=== PATIENT | male | born 1940 | race Caucasian/White ===

== ENCOUNTER 2017-11-02 11:20 | Inpatient (IN) | payer MEDICARE, BC ==
[~2017-11-02] VITALS: Ht 174 cm; Wt 83.0 kg
[~2017-11-02 11:20] MED LIST: ASPI81TA50 PO; ATOR20TA58 PO; CHOL2000 PO; CYAN10005 PO; DONE10TA7 PO; HYDR50TA6 PO; MAGN400T22 PO; POTA10TA12 PO; POTA10TA5 PO; SERT100T PO
[2017-11-02 16:33] VITALS: BP 160/94
[2017-11-02] MEDS ORDERED: SIME62.5 PO (17:29)
[2017-11-02] MEDS ORDERED: CARB1TAB2 PO (17:29)
[2017-11-02] MEDS ORDERED: ACET325T9 PO (17:29)
[2017-11-02] MEDS ORDERED: LEVO50TA PO (17:29)
[2017-11-02] MEDS ORDERED: POTA10CA PO (17:29)
[2017-11-02] MEDS ORDERED: LISI10TA2 PO (17:29)
[2017-11-02] MEDS ORDERED: SIMETHICONE 80 MG TAB.CHEW PO PRN (17:45)
[2017-11-02] MEDS: ACETAMINOPHEN 500 MG TABLET PO SCH ×2 (18:00→23:07)
[2017-11-02] MEDS: ATORVASTATIN CALCIUM 20 MG TABLET PO SCH (20:06)
[2017-11-02] MEDS: CARBIDOPA/LEVODOPA 25/100MG TABLET PO SCH (20:06)
[2017-11-03 05:35] VITALS: BP 132/77
[2017-11-03] MEDS: ACETAMINOPHEN 500 MG TABLET PO SCH ×4 (06:04→23:28)
[2017-11-03] MEDS: LEVOTHYROXINE 50 MCG TABLET PO SCH (06:04)
[2017-11-03] MEDS: SERTRALINE 100 MG TABLET. PO SCH (08:48)
[2017-11-03] MEDS: DONEPEZIL HCL 10 MG TABLET PO SCH (08:48)
[2017-11-03] MEDS: POTASSIUM CHLORIDE 20 MEQ TABLET.ER. PO SCH (08:48)
[2017-11-03] MEDS: ASPIRIN ENTERIC COATED 81 MG TABLET.DR. PO SCH (08:48)
[2017-11-03] MEDS: CARBIDOPA/LEVODOPA 25/100MG TABLET PO SCH ×3 (08:48→19:40)
[2017-11-03] MEDS: LISINOPRIL 10 MG TABLET PO SCH (08:49)
--- NOTE | 2017-11-03 11:14 | PDOC1 ---
History of Present Illness Reason for Visit: Rehab History of Present Illness Pt admitted to [facility] after a fall, sent to [facility] for swing bed rehab. Working w/ PT already today. Pt is well-known to me, hx of multi-system atrophy and dementia, hx of prostate cancer. REcently moved in to [place] in [place]. 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 See HPI for pertinent positives and negative responses, other celaya all other systems are negative, non pertinent or non contributory Allergies: Coded Allergies: No Known Drug Allergies (Unverified , 09/01/15) Medications Current Medications Acetaminophen (Tylenol) 500 mg Q6HRS PO Last administered on 11/03/17 06:04; Start 11/02/17 at 18:00 Aspirin (Aspirin Enteric Coated) 81 mg DAILY PO Last administered on 08:48; Start 11/03/17 at 09:00 Atorvastatin Calcium (Lipitor) 40 mg QHS PO Last administered on 11/02/17 20: 06; Start 11/02/17 at 21:00 Carbidopa/Levodopa (Sinemet 25/100) 1 tab TID PO Last administered on 08:48; Start 11/02/17 at 21:00 Donepezil HCl (Aricept) 20 mg DAILY PO Last administered on 11/03/17 08:48; Start 11/03/17 at 09:00 Levothyroxine Sodium (Synthroid) 50 mcg DAILY07 PO Last administered on 06:04; Start 11/03/17 at 07:00 Lisinopril (Prinivil) 10 mg DAILY PO Last administered on 11/03/17 08:49; Start 11/03/17 at 09:00 Sertraline HCl (Zoloft) 100 mg DAILY PO Last administered on 11/03/17 08:48; Start 11/03/17 at 09:00 Potassium Chloride (Klor-Con) 20 meq DAILYWBKFT PO Last administered on t 08:48; Start 11/03/17 at 08:00 Simethicone (Gas-X) 80 mg PRN BID PRN PO GAS / BLOATING; Start 11/02/17 at 17: 45 Active Scripts Active Klor-Con M10 (Potassium Chloride) 10 Meq Tablet.er 40 Meq PO BID Mag-Oxide (Magnesium Oxide) 400 Mg Tablet 1 Tab PO DAILY Reported Gas-X (Simethicone) 62.5 Mg Strip 80 Mg PO PRN BID PRN Potassium Chloride 10 Meq Capsule.er 20 Meq PO DAILYWBKFT Lisinopril 10 Mg Tablet 1 Tab PO DAILY Synthroid (Levothyroxine Sodium) 50 Mcg Tablet 1 Tab PO DAILY Sinemet 25-100 Mg Tablet (Carbidopa/Levodopa) 1 Each Tablet 1 Tab PO TID Tylenol (Acetaminophen) 325 Mg Tablet 500 Mg PO Q6HRS Hydrochlorothiazide Tablet (Hydrochlorothiazide) 50 Mg Tablet 25 Mg PO DAILY for hgih blood pressure last dose: 09/02 next dose: 09/03 AM Aspir-Low (Aspirin) 81 Mg Tablet.dr 81 Mg PO DAILY for heart health, blodo thinner prophlactic last dose: 09/02 AM next dose: 09/03 AM Atorvastatin Calcium 20 Mg Tablet 40 Mg PO QHS for high cholesterol last dose: 09/01 PM next dose: 09/02 PM Donepezil Hcl 10 Mg Tablet 20 Mg PO DAILY for dementia last dose: 09/02 AM next dose: 09/03 AM Zoloft (Sertraline Hcl) 100 Mg Tablet 100 Mg PO DAILY for depression last dose: 09/02 AM next dose: 09/03 AM Exam Vital Signs Vital Signs Date Time Temp Pulse Resp B/P (MAP) Pulse Ox O2 Delivery O2 Flow Rate FiO2 11/03/17 08:49 52 132/77 11/03/17 08:00 Room Air 11/03/17 05:35 98.3 16 96 General Appearance: Alert, Cooperative, No acute distress HEENT: PERRLA, EOMI, Mucous membr. moist/pink Respiratory: Clear to auscultation, Normal air movement Heart: Regular rate, Normal S1, Normal S2, No murmurs Abdominal: Soft, No tenderness Extremities: Normal pulses Skin: No rashes Neuro: Cranial nerves 3-12 NL, Other (Gait steady w/ walker and assistance) Psych/Mental Status: Other (AFfect flat, at pt's baseline) Assessment/Plan Assessment/Plan Generalized debility: Swing bed status for rehab. Dementia: Cont home meds Parkinsonism: Cont Sinemet Hypothyroidism: Cont Synthroid Depression, recurrent, moderate: Continue sertraline. COURSE Allergies Coded Allergies Type Severity Reaction Last Updated Verified No Known Drug Allergies 09/01/15 No Current Medications Medications (Trade) Dose Ordered Sig/Marisela Route PRN Reason Start Time Stop Time Status Last Admin Dose Admin Acetaminophen (Tylenol) 500 mg Q6HRS PO 11/02/17 18:00 11/03/17 06:04 Aspirin (Aspirin Enteric Coated) 81 mg DAILY PO 11/03/17 09:00 11/03/17 08:48 Atorvastatin Calcium (Lipitor) 40 mg QHS PO 11/02/17 21:00 11/02/17 20:06 Carbidopa/Levodopa (Sinemet 25/100) 1 tab TID PO 11/02/17 21:00 11/03/17 08:48 Donepezil HCl (Aricept) 20 mg DAILY PO 11/03/17 09:00 11/03/17 08:48 Levothyroxine Sodium (Synthroid) 50 mcg DAILY07 PO 11/03/17 07:00 11/03/17 06:04 Lisinopril (Prinivil) 10 mg DAILY PO 11/03/17 09:00 11/03/17 08:49 Sertraline HCl (Zoloft) 100 mg DAILY PO 11/03/17 09:00 11/03/17 08:48 Potassium Chloride (Klor-Con) 20 meq DAILYWBKFT PO 11/03/17 08:00 11/03/17 08:48 Simethicone (Gas-X) 80 mg PRN BID PRN PO GAS / BLOATING 11/02/17 17:45 I & O 11/03/17 00:00 Intake Total 0 ml Balance 0 ml Vital Signs Date Time Temp Pulse Resp B/P (MAP) Pulse Ox O2 Delivery O2 Flow Rate FiO2 11/03/17 08:49 52 132/77 11/03/17 08:00 Room Air 11/03/17 05:35 98.3 16 96 STAN KAUFMAN MD Nov 03, 2017 11:14
[2017-11-03 15:25] VITALS: BP 106/67
[2017-11-03] MEDS: ATORVASTATIN CALCIUM 20 MG TABLET PO SCH (19:40)
[2017-11-03 19:59] VITALS: BP 121/80
[2017-11-04] MEDS: LEVOTHYROXINE 50 MCG TABLET PO SCH (05:05)
[2017-11-04] MEDS: ACETAMINOPHEN 500 MG TABLET PO SCH ×4 (05:05→23:41)
[2017-11-04 05:40] VITALS: BP 131/86
[2017-11-04] MEDS: ASPIRIN ENTERIC COATED 81 MG TABLET.DR. PO SCH (08:06)
[2017-11-04] MEDS: CARBIDOPA/LEVODOPA 25/100MG TABLET PO SCH ×3 (08:06→20:19)
[2017-11-04] MEDS: POTASSIUM CHLORIDE 20 MEQ TABLET.ER. PO SCH (08:07)
[2017-11-04] MEDS: LISINOPRIL 10 MG TABLET PO SCH (08:07)
[2017-11-04] MEDS: DONEPEZIL HCL 10 MG TABLET PO SCH (08:07)
[2017-11-04] MEDS: SERTRALINE 100 MG TABLET. PO SCH (08:07)
[2017-11-04 15:32] VITALS: BP 129/74
[2017-11-04 19:49] VITALS: BP 157/84
[2017-11-04] MEDS: ATORVASTATIN CALCIUM 20 MG TABLET PO SCH (20:19)
[2017-11-05] MEDS: LEVOTHYROXINE 50 MCG TABLET PO SCH (05:22)
[2017-11-05] MEDS: ACETAMINOPHEN 500 MG TABLET PO SCH ×3 (05:22→18:37)
[2017-11-05 05:30] VITALS: BP 126/88
[2017-11-05] MEDS: CARBIDOPA/LEVODOPA 25/100MG TABLET PO SCH ×3 (08:34→21:38)
[2017-11-05] MEDS: DONEPEZIL HCL 10 MG TABLET PO SCH (08:34)
[2017-11-05] MEDS: ASPIRIN ENTERIC COATED 81 MG TABLET.DR. PO SCH (08:34)
[2017-11-05] MEDS: SERTRALINE 100 MG TABLET. PO SCH (08:34)
[2017-11-05] MEDS: POTASSIUM CHLORIDE 20 MEQ TABLET.ER. PO SCH (08:34)
[2017-11-05] MEDS: LISINOPRIL 10 MG TABLET PO SCH (08:36)
[2017-11-05] MEDS: ATORVASTATIN CALCIUM 20 MG TABLET PO SCH (21:38)
[2017-11-05] MEDS: DOCUSATE SODIUM 100 MG CAPSULE PO SCH (21:38)
[2017-11-06] MEDS: ACETAMINOPHEN 500 MG TABLET PO SCH ×4 (06:53→18:48)
[2017-11-06] MEDS: LEVOTHYROXINE 50 MCG TABLET PO SCH (06:53)
[2017-11-06 07:19] LABS: HEMATOCRIT 41.8 % (39.0-53.0); HEMOGLOBIN 14.2 g/dL (13.0-17.5); RED BLOOD COUNT 4.36 x10^6/uL (4.30-5.70); RED CELL DISTRIBUTION WIDTH 14.6 % (11.5-14.5); WHITE BLOOD COUNT 7.3 x10^3/uL (4.0-11.0)
[2017-11-06 07:30] LABS: CALCIUM 9.3 mg/dL (8.5-10.1); CREATININE 0.9 mg/dL (0.7-1.3); GFR 81.4; POTASSIUM 3.9 mmol/L (3.5-5.1)
[2017-11-06 08:00] VITALS: BP 147/84
[2017-11-06] MEDS: ASPIRIN ENTERIC COATED 81 MG TABLET.DR. PO SCH (08:16)
[2017-11-06] MEDS: LISINOPRIL 10 MG TABLET PO SCH (08:16)
[2017-11-06] MEDS: CARBIDOPA/LEVODOPA 25/100MG TABLET PO SCH ×3 (08:16→20:35)
[2017-11-06] MEDS: DOCUSATE SODIUM 100 MG CAPSULE PO SCH ×2 (08:17→20:35)
[2017-11-06] MEDS: DONEPEZIL HCL 10 MG TABLET PO SCH (08:17)
[2017-11-06] MEDS: SERTRALINE 100 MG TABLET. PO SCH (08:17)
[2017-11-06] MEDS: POTASSIUM CHLORIDE 20 MEQ TABLET.ER. PO SCH (08:17)
[2017-11-06] MEDS: POLYETHYLENE GLYCOL 3350 17 GM PACKET. PO SCH (09:57)
[2017-11-06] MEDS ORDERED: LISI1TAB3 PO (19:27)
[2017-11-06] MEDS: ATORVASTATIN CALCIUM 20 MG TABLET PO SCH (20:35)
[2017-11-06 20:36] VITALS: BP 170/85
[2017-11-06 23:06] VITALS: BP 155/80
[2017-11-07] MEDS ORDERED: ACET500T68 PO (00:39)
[2017-11-07] MEDS ORDERED: MIRT15TA PO (00:47)
[2017-11-07] MEDS ORDERED: BUPR150T15 PO (00:47)
[2017-11-07] MEDS ORDERED: MELO7.5T5 PO (00:47)
[2017-11-07 05:50] VITALS: BP 156/88
[2017-11-07] MEDS: ACETAMINOPHEN 500 MG TABLET PO SCH ×4 (06:14→17:02)
[2017-11-07] MEDS: LEVOTHYROXINE 50 MCG TABLET PO SCH (07:45)
[2017-11-07] MEDS: ASPIRIN ENTERIC COATED 81 MG TABLET.DR. PO SCH (07:45)
[2017-11-07] MEDS: DONEPEZIL HCL 10 MG TABLET PO SCH (07:46)
[2017-11-07] MEDS: CARBIDOPA/LEVODOPA 25/100MG TABLET PO SCH ×3 (07:46→20:50)
[2017-11-07] MEDS: POTASSIUM CHLORIDE 20 MEQ TABLET.ER. PO SCH (07:46)
[2017-11-07] MEDS: SERTRALINE 100 MG TABLET. PO SCH (07:46)
[2017-11-07] MEDS: DOCUSATE SODIUM 100 MG CAPSULE PO SCH ×2 (07:47→20:50)
[2017-11-07] MEDS: POLYETHYLENE GLYCOL 3350 17 GM PACKET. PO SCH (07:47)
[2017-11-07] MEDS: LISINOPRIL 10 MG TABLET PO SCH (07:47)
[2017-11-07 19:01] VITALS: BP 143/83
[2017-11-07] MEDS: MIRTAZAPINE 7.5 MG TABLET. PO SCH (20:50)
[2017-11-07] MEDS: ATORVASTATIN CALCIUM 20 MG TABLET PO SCH (20:50)
[2017-11-08] MEDS: ACETAMINOPHEN 500 MG TABLET PO SCH ×5 (05:34→23:08)
[2017-11-08] MEDS: LEVOTHYROXINE 50 MCG TABLET PO SCH (05:35)
[2017-11-08 05:53] VITALS: BP 159/92
[2017-11-08] MEDS: POLYETHYLENE GLYCOL 3350 17 GM PACKET. PO SCH (09:00)
[2017-11-08 09:35] VITALS: BP 143/86
[2017-11-08] MEDS: DONEPEZIL HCL 10 MG TABLET PO SCH (09:43)
[2017-11-08] MEDS: POTASSIUM CHLORIDE 20 MEQ TABLET.ER. PO SCH (09:43)
[2017-11-08] MEDS: CARBIDOPA/LEVODOPA 25/100MG TABLET PO SCH ×3 (09:44→19:51)
[2017-11-08] MEDS: ASPIRIN ENTERIC COATED 81 MG TABLET.DR. PO SCH (09:44)
[2017-11-08] MEDS: LISINOPRIL 10 MG TABLET PO SCH (09:44)
[2017-11-08] MEDS: DOCUSATE SODIUM 100 MG CAPSULE PO SCH ×2 (09:45→19:52)
[2017-11-08] MEDS: buPROPion XL 150 MG TAB.ER.24H PO SCH (13:38)
[2017-11-08] MEDS: hydroCHLOROthiazide 12.5 MG CAPSULE PO SCH (13:39)
[2017-11-08] MEDS: SERTRALINE 100 MG TABLET. PO SCH (13:39)
[2017-11-08] MEDS: MELOXICAM 7.5 MG TABLET PO SCH (13:39)
[2017-11-08 18:50] VITALS: BP 155/80
[2017-11-08] MEDS: MIRTAZAPINE 7.5 MG TABLET. PO SCH (19:51)
[2017-11-08] MEDS: ATORVASTATIN CALCIUM 20 MG TABLET PO SCH (19:51)
[2017-11-09] MEDS: ACETAMINOPHEN 500 MG TABLET PO SCH (05:29)
[2017-11-09] MEDS: LEVOTHYROXINE 50 MCG TABLET PO SCH (05:29)
[2017-11-09 05:45] VITALS: BP 145/87
[2017-11-09] MEDS: buPROPion XL 150 MG TAB.ER.24H PO SCH (08:52)
[2017-11-09] MEDS: DONEPEZIL HCL 10 MG TABLET PO SCH (08:52)
[2017-11-09] MEDS: POLYETHYLENE GLYCOL 3350 17 GM PACKET. PO SCH (08:52)
[2017-11-09] MEDS: hydroCHLOROthiazide 12.5 MG CAPSULE PO SCH (08:52)
[2017-11-09] MEDS: ASPIRIN ENTERIC COATED 81 MG TABLET.DR. PO SCH (08:52)
[2017-11-09] MEDS: MELOXICAM 7.5 MG TABLET PO SCH (08:53)
[2017-11-09] MEDS: POTASSIUM CHLORIDE 20 MEQ TABLET.ER. PO SCH (08:53)
[2017-11-09] MEDS: SERTRALINE 100 MG TABLET. PO SCH (08:53)
[2017-11-09] MEDS: DOCUSATE SODIUM 100 MG CAPSULE PO SCH ×2 (08:53→19:56)
[2017-11-09] MEDS: LISINOPRIL 10 MG TABLET PO SCH (08:53)
[2017-11-09] MEDS: CARBIDOPA/LEVODOPA 25/100MG TABLET PO SCH ×3 (08:53→19:57)
[2017-11-09 18:24] VITALS: BP 164/93
[2017-11-09] MEDS: MIRTAZAPINE 7.5 MG TABLET. PO SCH (19:57)
[2017-11-09] MEDS: ATORVASTATIN CALCIUM 20 MG TABLET PO SCH (19:57)
[2017-11-10 05:42] VITALS: BP 115/79
[2017-11-10] MEDS: LEVOTHYROXINE 50 MCG TABLET PO SCH (06:00)
[2017-11-10] MEDS: DOCUSATE SODIUM 100 MG CAPSULE PO SCH ×2 (09:00→20:14)
[2017-11-10] MEDS: POLYETHYLENE GLYCOL 3350 17 GM PACKET. PO SCH (09:00)
[2017-11-10] MEDS: DONEPEZIL HCL 10 MG TABLET PO SCH (09:37)
[2017-11-10] MEDS: SERTRALINE 100 MG TABLET. PO SCH (09:37)
[2017-11-10] MEDS: LISINOPRIL 10 MG TABLET PO SCH (09:38)
[2017-11-10] MEDS: CARBIDOPA/LEVODOPA 25/100MG TABLET PO SCH ×3 (09:38→20:12)
[2017-11-10] MEDS: buPROPion XL 150 MG TAB.ER.24H PO SCH (09:38)
[2017-11-10] MEDS: ASPIRIN ENTERIC COATED 81 MG TABLET.DR. PO SCH (09:39)
[2017-11-10] MEDS: POTASSIUM CHLORIDE 20 MEQ TABLET.ER. PO SCH (09:39)
[2017-11-10] MEDS: hydroCHLOROthiazide 12.5 MG CAPSULE PO SCH (09:39)
[2017-11-10] MEDS: MELOXICAM 7.5 MG TABLET PO SCH (09:39)
[2017-11-10 18:11] VITALS: BP 117/76
[2017-11-10] MEDS: MIRTAZAPINE 7.5 MG TABLET. PO SCH (20:12)
[2017-11-10] MEDS: ATORVASTATIN CALCIUM 20 MG TABLET PO SCH (20:12)
[2017-11-10] MEDS: ACETAMINOPHEN 500 MG TABLET PO PRN (23:23)
[2017-11-11] MEDS: LEVOTHYROXINE 50 MCG TABLET PO SCH (05:19)
[2017-11-11 05:27] VITALS: BP 139/89
[2017-11-11] MEDS: POTASSIUM CHLORIDE 20 MEQ TABLET.ER. PO SCH (08:03)
[2017-11-11] MEDS: SERTRALINE 100 MG TABLET. PO SCH (08:03)
[2017-11-11] MEDS: buPROPion XL 150 MG TAB.ER.24H PO SCH (08:03)
[2017-11-11] MEDS: hydroCHLOROthiazide 12.5 MG CAPSULE PO SCH (08:03)
[2017-11-11] MEDS: ASPIRIN ENTERIC COATED 81 MG TABLET.DR. PO SCH (08:03)
[2017-11-11] MEDS: CARBIDOPA/LEVODOPA 25/100MG TABLET PO SCH ×3 (08:04→19:51)
[2017-11-11] MEDS: DONEPEZIL HCL 10 MG TABLET PO SCH (08:04)
[2017-11-11] MEDS: LISINOPRIL 10 MG TABLET PO SCH (08:04)
[2017-11-11] MEDS: MELOXICAM 7.5 MG TABLET PO SCH (08:04)
[2017-11-11] MEDS: DOCUSATE SODIUM 100 MG CAPSULE PO SCH ×2 (08:05→19:51)
[2017-11-11] MEDS: POLYETHYLENE GLYCOL 3350 17 GM PACKET. PO SCH (08:05)
[2017-11-11] MEDS: ACETAMINOPHEN 500 MG TABLET PO PRN (09:51)
[2017-11-11 18:05] VITALS: BP 132/77
[2017-11-11] MEDS: MIRTAZAPINE 7.5 MG TABLET. PO SCH (19:51)
[2017-11-11] MEDS: ATORVASTATIN CALCIUM 20 MG TABLET PO SCH (19:51)
[2017-11-12 05:38] VITALS: BP 118/68
[2017-11-12] MEDS: hydroCHLOROthiazide 12.5 MG CAPSULE PO SCH (08:28)
[2017-11-12] MEDS: MELOXICAM 7.5 MG TABLET PO SCH (08:29)
[2017-11-12] MEDS: CARBIDOPA/LEVODOPA 25/100MG TABLET PO SCH ×3 (08:30→20:48)
[2017-11-12] MEDS: SERTRALINE 100 MG TABLET. PO SCH (08:31)
[2017-11-12] MEDS: ASPIRIN ENTERIC COATED 81 MG TABLET.DR. PO SCH (08:31)
[2017-11-12] MEDS: buPROPion XL 150 MG TAB.ER.24H PO SCH (08:31)
[2017-11-12] MEDS: POTASSIUM CHLORIDE 20 MEQ TABLET.ER. PO SCH (08:31)
[2017-11-12] MEDS: DONEPEZIL HCL 10 MG TABLET PO SCH (08:31)
[2017-11-12] MEDS: DOCUSATE SODIUM 100 MG CAPSULE PO SCH ×2 (08:32→20:51)
[2017-11-12] MEDS: LISINOPRIL 10 MG TABLET PO SCH (08:32)
[2017-11-12] MEDS: POLYETHYLENE GLYCOL 3350 17 GM PACKET. PO SCH (08:33)
[2017-11-12] MEDS: LEVOTHYROXINE 50 MCG TABLET PO SCH (10:57)
[2017-11-12 14:17] VITALS: BP 111/66
[2017-11-12 18:14] VITALS: BP 125/72
[2017-11-12] MEDS: MIRTAZAPINE 7.5 MG TABLET. PO SCH (20:48)
[2017-11-12] MEDS: ATORVASTATIN CALCIUM 20 MG TABLET PO SCH (20:49)
[2017-11-13 05:32] VITALS: BP 117/67
[2017-11-13] MEDS: LEVOTHYROXINE 50 MCG TABLET PO SCH (08:09)
[2017-11-13] MEDS: buPROPion XL 150 MG TAB.ER.24H PO SCH (08:44)
[2017-11-13] MEDS: DONEPEZIL HCL 10 MG TABLET PO SCH (08:45)
[2017-11-13] MEDS: LISINOPRIL 10 MG TABLET PO SCH (08:45)
[2017-11-13] MEDS: DOCUSATE SODIUM 100 MG CAPSULE PO SCH ×2 (08:45→20:47)
[2017-11-13] MEDS: POTASSIUM CHLORIDE 20 MEQ TABLET.ER. PO SCH (08:45)
[2017-11-13] MEDS: ASPIRIN ENTERIC COATED 81 MG TABLET.DR. PO SCH (08:45)
[2017-11-13] MEDS: CARBIDOPA/LEVODOPA 25/100MG TABLET PO SCH ×3 (08:45→20:47)
[2017-11-13] MEDS: MELOXICAM 7.5 MG TABLET PO SCH (08:46)
[2017-11-13] MEDS: POLYETHYLENE GLYCOL 3350 17 GM PACKET. PO SCH (08:46)
[2017-11-13] MEDS: hydroCHLOROthiazide 12.5 MG CAPSULE PO SCH (08:46)
[2017-11-13] MEDS: SERTRALINE 100 MG TABLET. PO SCH (08:47)
--- NOTE | 2017-11-13 18:12 | PDOC ---
Exam Note: William Note: Please also refer to the separate dictated note~for this date of service dictated separately.~Patient seen individually. Discussed the patient with Nursing staff reviewed the chart.~Reviewed interim history and current functioning. Reviewed vital signs,~Labs/ Radiology~and current medications noted below. Continue current treatment with the changes noted in the dictated addendum note Assessment: Vital Signs: Vital Signs Date Time Temp Pulse Resp B/P (MAP) Pulse Ox O2 Delivery O2 Flow Rate FiO2 11/13/17 08:45 51 117/67 11/13/17 08:20 Room Air 11/13/17 05:32 97.1 16 97 I&O Intake and Output 11/13/17 07:00 Intake Total 1560 ml Balance 1560 ml Intake Oral 1560 ml # Voids 6 # Bowel Movements 2 Current Medications: Meds: Current Medications Acetaminophen (Tylenol) 500 mg Q6HRS PO Last administered on 11/09/17 05:29; Start 11/02/17 at 18:00; Stop 11/09/17 at 06:46; Status DC Aspirin (Aspirin Enteric Coated) 81 mg DAILY PO Last administered on 08:45; Start 11/03/17 at 09:00 Atorvastatin Calcium (Lipitor) 40 mg QHS PO Last administered on 11/12/17 20: 49; Start 11/02/17 at 21:00 Carbidopa/Levodopa (Sinemet 25/100) 1 tab TID PO Last administered on 13:45; Start 11/02/17 at 21:00 Donepezil HCl (Aricept) 20 mg DAILY PO Last administered on 11/13/17 08:45; Start 11/03/17 at 09:00 Levothyroxine Sodium (Synthroid) 50 mcg DAILY07 PO Last administered on 08:09; Start 11/03/17 at 07:00 Lisinopril (Prinivil) 10 mg DAILY PO Last administered on 11/13/17 08:45; Start 11/03/17 at 09:00 Sertraline HCl (Zoloft) 100 mg DAILY PO Last administered on 11/07/17 07:46; Start 11/03/17 at 09:00; Stop 11/07/17 at 17:46; Status DC Potassium Chloride (Klor-Con) 20 meq DAILYWBKFT PO Last administered on 08:45; Start 11/03/17 at 08:00 Simethicone (Gas-X) 80 mg PRN BID PRN PO GAS / BLOATING; Start 11/02/17 at 17: 45 Docusate Sodium (Colace) 100 mg BID PO Last administered on 11/13/17 08:45; Start 11/05/17 at 21:00 Polyethylene Glycol (miraLAX) 17 gm DAILY PO Last administered on 11/07/17 07 :47; Start 11/06/17 at 09:00 Sertraline HCl (Zoloft) 200 mg DAILY PO Last administered on 11/13/17 08:47; Start 11/08/17 at 09:00 Mirtazapine (Remeron) 7.5 mg QHS PO Last administered on 11/12/17 20:48; Start 11/07/17 at 21:00 Hydrochlorothiazide (Microzide) 12.5 mg DAILY PO Last administered on 08:46; Start 11/08/17 at 09:00 Meloxicam (Mobic) 7.5 mg DAILY PO Last administered on 11/13/17 08:46; Start 11/08/17 at 09:00 Bupropion HCl (Wellbutrin Xl) 150 mg DAILY PO Last administered on 11/13/17 08:44; Start 11/08/17 at 09:00 Acetaminophen (Tylenol) 500 mg Q6HRS PRN PO pain Last administered on 09:51; Start 11/09/17 at 06:45 Active Scripts Active Klor-Con M10 (Potassium Chloride) 10 Meq Tablet.er 40 Meq PO BID Mag-Oxide (Magnesium Oxide) 400 Mg Tablet 1 Tab PO DAILY Reported Mobic (Meloxicam) 7.5 Mg Tablet 7.5 Mg PO DAILY Wellbutrin Xl (Bupropion Hcl) 150 Mg Tab.er.24h 150 Mg PO DAILY Remeron (Mirtazapine) 15 Mg Tablet 7.5 Mg PO QHS Acetaminophen 500 Mg Tablet 500 Mg PO PRN Q6HRS PRN Lisinopril-Hctz 10-12.5 Mg Tab (Lisinopril/Hydrochlorothiazide) 1 Each Tablet 1 Tab PO DAILY Gas-X (Simethicone) 62.5 Mg Strip 80 Mg PO PRN BID PRN Potassium Chloride 10 Meq Capsule.er 20 Meq PO DAILYWBKFT Synthroid (Levothyroxine Sodium) 50 Mcg Tablet 1 Tab PO DAILY Sinemet 25-100 Mg Tablet (Carbidopa/Levodopa) 1 Each Tablet 1 Tab PO TID Aspir-Low (Aspirin) 81 Mg Tablet.dr 81 Mg PO DAILY for heart health, blodo thinner prophlactic last dose: 09/02 AM next dose: 09/03 AM Atorvastatin Calcium 20 Mg Tablet 40 Mg PO QHS for high cholesterol last dose: 09/01 PM next dose: 09/02 PM Donepezil Hcl 10 Mg Tablet 20 Mg PO QHS for dementia last dose: 09/02 AM next dose: 09/03 AM Zoloft (Sertraline Hcl) 100 Mg Tablet 200 Mg PO DAILY for depression last dose: 09/02 AM next dose: 09/03 AM I have reviewed the current psychotropics carefully including drug interactions. Risk benefit ratio favors no change other than as noted in my dictated progress note. Diagnosis: Problems: (1) Anxiety disorder (2) Dementia in Alzheimer's disease with delusions (3) Dementia in Alzheimer's disease with depression (4) Dementia, vascular, with delusions (5) Dementia, vascular, with depression (6) Impulse control disorder ED OROZCO MD Nov 13, 2017 18:12
[2017-11-13] MEDS: MIRTAZAPINE 7.5 MG TABLET. PO SCH (20:47)
[2017-11-13] MEDS: ATORVASTATIN CALCIUM 20 MG TABLET PO SCH (20:47)
[2017-11-14 05:50] VITALS: BP 178/98
[2017-11-14] MEDS: POLYETHYLENE GLYCOL 3350 17 GM PACKET. PO SCH (09:00)
[2017-11-14] MEDS: DOCUSATE SODIUM 100 MG CAPSULE PO SCH ×2 (09:00→21:00)
[2017-11-14] MEDS: LEVOTHYROXINE 50 MCG TABLET PO SCH (10:01)
[2017-11-14] MEDS: POTASSIUM CHLORIDE 20 MEQ TABLET.ER. PO SCH (10:01)
[2017-11-14] MEDS: CARBIDOPA/LEVODOPA 25/100MG TABLET PO SCH ×3 (10:02→21:16)
[2017-11-14] MEDS: SERTRALINE 100 MG TABLET. PO SCH (10:02)
[2017-11-14] MEDS: LISINOPRIL 10 MG TABLET PO SCH (10:02)
[2017-11-14] MEDS: buPROPion XL 150 MG TAB.ER.24H PO SCH (10:02)
[2017-11-14] MEDS: ASPIRIN ENTERIC COATED 81 MG TABLET.DR. PO SCH (10:02)
[2017-11-14] MEDS: hydroCHLOROthiazide 12.5 MG CAPSULE PO SCH (10:02)
[2017-11-14] MEDS: DONEPEZIL HCL 10 MG TABLET PO SCH (10:02)
[2017-11-14] MEDS: MELOXICAM 7.5 MG TABLET PO SCH (10:02)
[2017-11-14 17:14] VITALS: BP 116/76
--- NOTE | 2017-11-14 18:20 | PDOC ---
Exam Note: William Note: Please also refer to the separate dictated note~for this date of service dictated separately.~Patient seen individually. Discussed the patient with Nursing staff reviewed the chart.~Reviewed interim history and current functioning. Reviewed vital signs,~Labs/ Radiology~and current medications noted below. Continue current treatment with the changes noted in the dictated addendum note Assessment: Vital Signs: Vital Signs Date Time Temp Pulse Resp B/P (MAP) Pulse Ox O2 Delivery O2 Flow Rate FiO2 11/14/17 17:14 97.8 63 18 116/76 (89) 97 Room Air I&O Intake and Output 11/14/17 07:00 Intake Total 1720 ml Output Total 1 ml Balance 1719 ml Intake Oral 1720 ml Output Urine Total 1 ml # Voids 2 Current Medications: Meds: Current Medications Acetaminophen (Tylenol) 500 mg Q6HRS PO Last administered on 11/09/17 05:29; Start 11/02/17 at 18:00; Stop 11/09/17 at 06:46; Status DC Aspirin (Aspirin Enteric Coated) 81 mg DAILY PO Last administered on 10:02; Start 11/03/17 at 09:00 Atorvastatin Calcium (Lipitor) 40 mg QHS PO Last administered on 11/13/17 20: 47; Start 11/02/17 at 21:00 Carbidopa/Levodopa (Sinemet 25/100) 1 tab TID PO Last administered on 14:18; Start 11/02/17 at 21:00 Donepezil HCl (Aricept) 20 mg DAILY PO Last administered on 11/14/17 10:02; Start 11/03/17 at 09:00 Levothyroxine Sodium (Synthroid) 50 mcg DAILY07 PO Last administered on 10:01; Start 11/03/17 at 07:00 Lisinopril (Prinivil) 10 mg DAILY PO Last administered on 11/14/17 10:02; Start 11/03/17 at 09:00 Sertraline HCl (Zoloft) 100 mg DAILY PO Last administered on 11/07/17 07:46; Start 11/03/17 at 09:00; Stop 11/07/17 at 17:46; Status DC Potassium Chloride (Klor-Con) 20 meq DAILYWBKFT PO Last administered on 10:01; Start 11/03/17 at 08:00 Simethicone (Gas-X) 80 mg PRN BID PRN PO GAS / BLOATING; Start 11/02/17 at 17: 45 Docusate Sodium (Colace) 100 mg BID PO Last administered on 11/13/17 20:47; Start 11/05/17 at 21:00 Polyethylene Glycol (miraLAX) 17 gm DAILY PO Last administered on 11/07/17 07 :47; Start 11/06/17 at 09:00 Sertraline HCl (Zoloft) 200 mg DAILY PO Last administered on 11/14/17 10:02; Start 11/08/17 at 09:00 Mirtazapine (Remeron) 7.5 mg QHS PO Last administered on 11/13/17 20:47; Start 11/07/17 at 21:00 Hydrochlorothiazide (Microzide) 12.5 mg DAILY PO Last administered on 10:02; Start 11/08/17 at 09:00 Meloxicam (Mobic) 7.5 mg DAILY PO Last administered on 11/14/17 10:02; Start 11/08/17 at 09:00 Bupropion HCl (Wellbutrin Xl) 150 mg DAILY PO Last administered on 11/14/17 10:02; Start 11/08/17 at 09:00 Acetaminophen (Tylenol) 500 mg Q6HRS PRN PO pain Last administered on 09:51; Start 11/09/17 at 06:45 Buspirone HCl (Buspar) 5 mg BID92 PO ; Start 11/15/17 at 09:00 Active Scripts Active Klor-Con M10 (Potassium Chloride) 10 Meq Tablet.er 40 Meq PO BID Mag-Oxide (Magnesium Oxide) 400 Mg Tablet 1 Tab PO DAILY Reported Mobic (Meloxicam) 7.5 Mg Tablet 7.5 Mg PO DAILY Wellbutrin Xl (Bupropion Hcl) 150 Mg Tab.er.24h 150 Mg PO DAILY Remeron (Mirtazapine) 15 Mg Tablet 7.5 Mg PO QHS Acetaminophen 500 Mg Tablet 500 Mg PO PRN Q6HRS PRN Lisinopril-Hctz 10-12.5 Mg Tab (Lisinopril/Hydrochlorothiazide) 1 Each Tablet 1 Tab PO DAILY Gas-X (Simethicone) 62.5 Mg Strip 80 Mg PO PRN BID PRN Potassium Chloride 10 Meq Capsule.er 20 Meq PO DAILYWBKFT Synthroid (Levothyroxine Sodium) 50 Mcg Tablet 1 Tab PO DAILY Sinemet 25-100 Mg Tablet (Carbidopa/Levodopa) 1 Each Tablet 1 Tab PO TID Aspir-Low (Aspirin) 81 Mg Tablet.dr 81 Mg PO DAILY for heart health, blodo thinner prophlactic last dose: 1015 AM next dose: 1016 AM Atorvastatin Calcium 20 Mg Tablet 40 Mg PO QHS for high cholesterol last dose: 09/01 PM next dose: 09/02 PM Donepezil Hcl 10 Mg Tablet 20 Mg PO QHS for dementia last dose: 09/02 AM next dose: 09/03 AM Zoloft (Sertraline Hcl) 100 Mg Tablet 200 Mg PO DAILY for depression last dose: 09/02 AM next dose: 16 AM I have reviewed the current psychotropics carefully including drug interactions. Risk benefit ratio favors no change other than as noted in my dictated progress note. Diagnosis: Problems: (1) Obsessive compulsive disorder (2) Lewy body dementia with behavioral disturbance (3) Anxiety disorder ED OROZCO MD Nov 14, 2017 18:20
[2017-11-14 19:34] VITALS: BP 122/77
[2017-11-14] MEDS: MIRTAZAPINE 7.5 MG TABLET. PO SCH (21:16)
[2017-11-14] MEDS: ACETAMINOPHEN 500 MG TABLET PO PRN (21:16)
[2017-11-14] MEDS: ATORVASTATIN CALCIUM 20 MG TABLET PO SCH (21:16)
[2017-11-15] MEDS: LEVOTHYROXINE 50 MCG TABLET PO SCH (05:54)
[2017-11-15 06:14] VITALS: BP 158/82
[2017-11-15] MEDS: DOCUSATE SODIUM 100 MG CAPSULE PO SCH ×2 (08:58→20:17)
[2017-11-15] MEDS: POLYETHYLENE GLYCOL 3350 17 GM PACKET. PO SCH (08:58)
[2017-11-15] MEDS: hydroCHLOROthiazide 12.5 MG CAPSULE PO SCH (08:59)
[2017-11-15] MEDS: MELOXICAM 7.5 MG TABLET PO SCH (08:59)
[2017-11-15] MEDS: LISINOPRIL 10 MG TABLET PO SCH (09:00)
[2017-11-15] MEDS: buPROPion XL 150 MG TAB.ER.24H PO SCH (09:00)
[2017-11-15] MEDS: CARBIDOPA/LEVODOPA 25/100MG TABLET PO SCH ×3 (09:00→20:34)
[2017-11-15] MEDS: SERTRALINE 100 MG TABLET. PO SCH (09:00)
[2017-11-15] MEDS: POTASSIUM CHLORIDE 20 MEQ TABLET.ER. PO SCH (09:00)
[2017-11-15] MEDS: ASPIRIN ENTERIC COATED 81 MG TABLET.DR. PO SCH (09:00)
[2017-11-15] MEDS: DONEPEZIL HCL 10 MG TABLET PO SCH (09:00)
[2017-11-15] MEDS: busPIRone 5 MG TABLET. PO SCH ×2 (09:03→14:47)
--- NOTE | 2017-11-15 13:45 | CONS ---
DATE OF CONSULTATION: 11/13/2017 This late entry, 11/13/2017, covers elements not covered in my initial note of 11/13/2017. I met with the patient the evening of 11/13/2017 for this evaluation. Discussed with nursing staff. IDENTIFYING DATA: The patient is a 77-year-old male seen in bed 133 at [facility] for a psychiatric consult requested by Dr. Reyes on account of symptoms of depression, anxiety, obsessiveness, memory deficits. The patient has a diagnosis of multisystem atrophy, CA prostate. CHIEF COMPLAINT: "I am quite obsessive. Yes I get fixated on details and have to have things exactly straight and clean. This is a problem at home. 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 My memory is alright." HISTORY OF PRESENT ILLNESS: The patient has a history of short-term memory deficits, anxiety, mood lability, and marked obsessive thought processes. He minimizes his memory deficits nevertheless. He has also had a history of depression and has been on antidepressants for about 4 years. No clear symptoms of bipolar disorder, suicidal or homicidal ideation. He has not been driving for the past several years due to his privileges being curtailed. The patient also has a diagnosis of Lewy body dementia with history of delusions, but no recent psychotic symptoms. PAST PSYCHIATRIC HISTORY: As above. PAST MEDICAL HISTORY: Parkinson's, followed by Dr. Keith at with major neurocognitive disorder, Lewy body type, history of sleep apnea, CA prostate. DRUG ALLERGIES: Negative. CURRENT PSYCHOTROPICS: Zoloft 200 mg daily, even though the note by Dr. Reyes indicated the patient was on 100 mg daily. The patient is also on Wellbutrin XL 150 mg a day, Aricept 20 mg a day, Remeron 7.5 mg at bedtime. CODE STATUS: DNR. FAMILY HISTORY: Noncontributory. SOCIAL HISTORY: The patient lives at home with his who does the driving, grocery shopping, and other activities. No alcohol or drug abuse history. MENTAL STATUS EXAMINATION: The patient was seen individually evening of 11/13/2017. He is oriented to himself and situation, knew he was at the hospital in [facility] in [place], felt the date was 11/12/2017, able to do 5 steps on serial 7s, spelt world forward, no error, backward 1 error. Attention span is short. Short-term memory is impaired, remote is better. No active psychotic symptoms, suicidal or homicidal ideation. He is somewhat obsessive, repetitive at times, and subjectively complains of being distressed due to his obsessive thought processes and compulsions. No suicidal or homicidal ideation. LABORATORY DATA: Reviewed. Rest of the details are mentioned in my initial note. IMPRESSION: Major neurocognitive disorder, Lewy body type with depression, history of delusions, major depressive disorder, recurrent anxiety disorder, unspecified. Rest as above. PLAN: The patient is on a reasonable dosage of Zoloft and Wellbutrin is being used to augment it. Continue the two of them together with Aricept, Remeron. Add BuSpar 5 mg twice a day to augment the Zoloft for his OCD symptoms, but given his age, I would not like to increase the dosage too much at least for now. Dr. Reyes, thank you for the opportunity to participate in your patient's care. We will follow with you. MAN Isidro OROZCO MD DR: KASIA/benedicto JOB#: [id number] / [id number]
[2017-11-15 17:28] VITALS: BP 167/73
--- NOTE | 2017-11-15 18:23 | PDOC ---
Exam Note: William Note: Please also refer to the separate dictated note~for this date of service dictated separately.~Patient seen individually. Discussed the patient with Nursing staff reviewed the chart.~Reviewed interim history and current functioning. Reviewed vital signs,~Labs/ Radiology~and current medications noted below. Continue current treatment with the changes noted in the dictated addendum note Assessment: Vital Signs: Vital Signs Date Time Temp Pulse Resp B/P (MAP) Pulse Ox O2 Delivery O2 Flow Rate FiO2 11/15/17 17:28 97.8 61 20 167/73 (104) 97 Room Air I&O Intake and Output 11/15/17 07:00 Intake Total 1840 ml Output Total 11 ml Balance 1829 ml Intake Oral 1840 ml Output Urine Total 9 ml Stool Total 2 ml Current Medications: Meds: Current Medications Acetaminophen (Tylenol) 500 mg Q6HRS PO Last administered on 11/09/17 05:29; Start 11/02/17 at 18:00; Stop 11/09/17 at 06:46; Status DC Aspirin (Aspirin Enteric Coated) 81 mg DAILY PO Last administered on 09:00; Start 11/03/17 at 09:00 Atorvastatin Calcium (Lipitor) 40 mg QHS PO Last administered on 11/14/17 21: 16; Start 11/02/17 at 21:00 Carbidopa/Levodopa (Sinemet 25/100) 1 tab TID PO Last administered on 14:47; Start 11/02/17 at 21:00 Donepezil HCl (Aricept) 20 mg DAILY PO Last administered on 11/15/17 09:00; Start 11/03/17 at 09:00 Levothyroxine Sodium (Synthroid) 50 mcg DAILY07 PO Last administered on 05:54; Start 11/03/17 at 07:00 Lisinopril (Prinivil) 10 mg DAILY PO Last administered on 11/15/17 09:00; Start 11/03/17 at 09:00 Sertraline HCl (Zoloft) 100 mg DAILY PO Last administered on 11/07/17 07:46; Start 11/03/17 at 09:00; Stop 11/07/17 at 17:46; Status DC Potassium Chloride (Klor-Con) 20 meq DAILYWBKFT PO Last administered on 09:00; Start 11/03/17 at 08:00 Simethicone (Gas-X) 80 mg PRN BID PRN PO GAS / BLOATING; Start 11/02/17 at 17: 45 Docusate Sodium (Colace) 100 mg BID PO Last administered on 11/13/17 20:47; Start 11/05/17 at 21:00 Polyethylene Glycol (miraLAX) 17 gm DAILY PO Last administered on 11/07/17 07 :47; Start 11/06/17 at 09:00 Sertraline HCl (Zoloft) 200 mg DAILY PO Last administered on 11/15/17 09:00; Start 11/08/17 at 09:00 Mirtazapine (Remeron) 7.5 mg QHS PO Last administered on 11/14/17 21:16; Start 11/07/17 at 21:00 Hydrochlorothiazide (Microzide) 12.5 mg DAILY PO Last administered on 08:59; Start 11/08/17 at 09:00 Meloxicam (Mobic) 7.5 mg DAILY PO Last administered on 11/15/17 08:59; Start 11/08/17 at 09:00 Bupropion HCl (Wellbutrin Xl) 150 mg DAILY PO Last administered on 11/15/17 09:00; Start 11/08/17 at 09:00 Acetaminophen (Tylenol) 500 mg Q6HRS PRN PO pain Last administered on 21:16; Start 11/09/17 at 06:45 Buspirone HCl (Buspar) 5 mg BID92 PO Last administered on 11/15/17 14:47; Start 11/15/17 at 09:00 Active Scripts Active Klor-Con M10 (Potassium Chloride) 10 Meq Tablet.er 40 Meq PO BID Mag-Oxide (Magnesium Oxide) 400 Mg Tablet 1 Tab PO DAILY Reported Mobic (Meloxicam) 7.5 Mg Tablet 7.5 Mg PO DAILY Wellbutrin Xl (Bupropion Hcl) 150 Mg Tab.er.24h 150 Mg PO DAILY Remeron (Mirtazapine) 15 Mg Tablet 7.5 Mg PO QHS Acetaminophen 500 Mg Tablet 500 Mg PO PRN Q6HRS PRN Lisinopril-Hctz 10-12.5 Mg Tab (Lisinopril/Hydrochlorothiazide) 1 Each Tablet 1 Tab PO DAILY Gas-X (Simethicone) 62.5 Mg Strip 80 Mg PO PRN BID PRN Potassium Chloride 10 Meq Capsule.er 20 Meq PO DAILYWBKFT Synthroid (Levothyroxine Sodium) 50 Mcg Tablet 1 Tab PO DAILY Sinemet 25-100 Mg Tablet (Carbidopa/Levodopa) 1 Each Tablet 1 Tab PO TID Aspir-Low (Aspirin) 81 Mg Tablet.dr 81 Mg PO DAILY for heart health, blodo thinner prophlactic last dose: 09/02 AM next dose: 09/03 AM Atorvastatin Calcium 20 Mg Tablet 40 Mg PO QHS for high cholesterol last dose: 09/01 PM next dose: 09/02 PM Donepezil Hcl 10 Mg Tablet 20 Mg PO QHS for dementia last dose: 09/02 AM next dose: 09/03 AM Zoloft (Sertraline Hcl) 100 Mg Tablet 200 Mg PO DAILY for depression last dose: 09/02 AM next dose: 09/03 AM I have reviewed the current psychotropics carefully including drug interactions. Risk benefit ratio favors no change other than as noted in my dictated progress note. Diagnosis: Problems: (1) Obsessive compulsive disorder (2) Lewy body dementia with behavioral disturbance (3) Anxiety disorder ED OROZCO MD Nov 15, 2017 18:23
--- NOTE | 2017-11-15 20:17 | PN ---
DATE: 11/14/2017 This note covers elements not covered in my initial note of 11/14/2017. SUBJECTIVE: The patient was seen individually, reviewed the chart. Overall, the patient remains somewhat obsessive, anxious at times and short term memory is impaired consistent with his diagnosis of Lewy body dementia. He denies any overt hallucinations. Minimizes his memory problems. REVIEW OF SYSTEMS: Ambulation impaired, with a walker. No CV, , pulmonary, eye system symptoms on review. MENTAL STATUS EXAM: Oriented times himself, situation. Speech coherent, abstraction fair, computation impaired, language function intact. Mood and affect still somewhat anxious, dysphoric. LABORATORY DATA: Reviewed. IMPRESSION: Major neurocognitive disorder, Lewy body with depression; major depressive disorder; obsessive-compulsive disorder. PLAN: Continue Zoloft 200 mg a day, augment with BuSpar 5 mg twice a day for the obsessive thought processes. Rest of the psychotropics as mentioned in my initial note and will remain unchanged. MAN Isidro OROZCO MD DR: KAISA/benedicto JOB#: [id number] / [id number]
[2017-11-15] MEDS: ATORVASTATIN CALCIUM 20 MG TABLET PO SCH (20:34)
[2017-11-15] MEDS: MIRTAZAPINE 7.5 MG TABLET. PO SCH (20:34)
[2017-11-16 06:04] VITALS: BP 168/90
[2017-11-16] MEDS: LEVOTHYROXINE 50 MCG TABLET PO SCH (06:04)
[2017-11-16 08:07] VITALS: BP 173/87
[2017-11-16] MEDS: ASPIRIN ENTERIC COATED 81 MG TABLET.DR. PO SCH (09:22)
[2017-11-16] MEDS: CARBIDOPA/LEVODOPA 25/100MG TABLET PO SCH ×3 (09:23→20:10)
[2017-11-16] MEDS: buPROPion XL 150 MG TAB.ER.24H PO SCH (09:23)
[2017-11-16] MEDS: hydroCHLOROthiazide 12.5 MG CAPSULE PO SCH (09:23)
[2017-11-16] MEDS: MELOXICAM 7.5 MG TABLET PO SCH (09:23)
[2017-11-16] MEDS: POTASSIUM CHLORIDE 20 MEQ TABLET.ER. PO SCH (09:23)
[2017-11-16] MEDS: DONEPEZIL HCL 10 MG TABLET PO SCH (09:23)
[2017-11-16] MEDS: DOCUSATE SODIUM 100 MG CAPSULE PO SCH ×2 (09:24→20:08)
[2017-11-16] MEDS: LISINOPRIL 10 MG TABLET PO SCH (09:24)
[2017-11-16] MEDS: SERTRALINE 100 MG TABLET. PO SCH (09:24)
[2017-11-16] MEDS: busPIRone 5 MG TABLET. PO SCH ×2 (09:24→13:56)
[2017-11-16] MEDS: POLYETHYLENE GLYCOL 3350 17 GM PACKET. PO SCH (09:24)
--- NOTE | 2017-11-16 18:13 | PDOC ---
Exam Note: William Note: Please also refer to the separate dictated note~for this date of service dictated separately.~Patient seen individually. Discussed the patient with Nursing staff reviewed the chart.~Reviewed interim history and current functioning. Reviewed vital signs,~Labs/ Radiology~and current medications noted below. Continue current treatment with the changes noted in the dictated addendum note Assessment: Vital Signs: Vital Signs Date Time Temp Pulse Resp B/P (MAP) Pulse Ox O2 Delivery O2 Flow Rate FiO2 11/16/17 09:24 62 173/87 11/16/17 08:24 Room Air 11/16/17 08:07 97.6 18 96 I&O Intake and Output 11/16/17 07:00 Intake Total 600 ml Output Total 1 ml Balance 599 ml Intake Oral 600 ml Output Urine Total 1 ml Current Medications: Meds: Current Medications Acetaminophen (Tylenol) 500 mg Q6HRS PO Last administered on 11/09/17 05:29; Start 11/02/17 at 18:00; Stop 11/09/17 at 06:46; Status DC Aspirin (Aspirin Enteric Coated) 81 mg DAILY PO Last administered on 09:22; Start 11/03/17 at 09:00 Atorvastatin Calcium (Lipitor) 40 mg QHS PO Last administered on 11/15/17 20: 34; Start 11/02/17 at 21:00 Carbidopa/Levodopa (Sinemet 25/100) 1 tab TID PO Last administered on 13:56; Start 11/02/17 at 21:00 Donepezil HCl (Aricept) 20 mg DAILY PO Last administered on 11/16/17 09:23; Start 11/03/17 at 09:00 Levothyroxine Sodium (Synthroid) 50 mcg DAILY07 PO Last administered on 06:04; Start 11/03/17 at 07:00 Lisinopril (Prinivil) 10 mg DAILY PO Last administered on 11/16/17 09:24; Start 11/03/17 at 09:00 Sertraline HCl (Zoloft) 100 mg DAILY PO Last administered on 11/07/17 07:46; Start 11/03/17 at 09:00; Stop 11/07/17 at 17:46; Status DC Potassium Chloride (Klor-Con) 20 meq DAILYWBKFT PO Last administered on 09:23; Start 11/03/17 at 08:00 Simethicone (Gas-X) 80 mg PRN BID PRN PO GAS / BLOATING; Start 11/02/17 at 17: 45 Docusate Sodium (Colace) 100 mg BID PO Last administered on 11/13/17 20:47; Start 11/05/17 at 21:00 Polyethylene Glycol (miraLAX) 17 gm DAILY PO Last administered on 11/07/17 07 :47; Start 11/06/17 at 09:00 Sertraline HCl (Zoloft) 200 mg DAILY PO Last administered on 11/16/17 09:24; Start 11/08/17 at 09:00 Mirtazapine (Remeron) 7.5 mg QHS PO Last administered on 11/15/17 20:34; Start 11/07/17 at 21:00 Hydrochlorothiazide (Microzide) 12.5 mg DAILY PO Last administered on 09:23; Start 11/08/17 at 09:00 Meloxicam (Mobic) 7.5 mg DAILY PO Last administered on 11/16/17 09:23; Start 11/08/17 at 09:00 Bupropion HCl (Wellbutrin Xl) 150 mg DAILY PO Last administered on 11/16/17 09:23; Start 11/08/17 at 09:00 Acetaminophen (Tylenol) 500 mg Q6HRS PRN PO pain Last administered on 21:16; Start 11/09/17 at 06:45 Buspirone HCl (Buspar) 5 mg BID92 PO Last administered on 11/16/17 13:56; Start 11/15/17 at 09:00 Active Scripts Active Klor-Con M10 (Potassium Chloride) 10 Meq Tablet.er 40 Meq PO BID Mag-Oxide (Magnesium Oxide) 400 Mg Tablet 1 Tab PO DAILY Reported Mobic (Meloxicam) 7.5 Mg Tablet 7.5 Mg PO DAILY Wellbutrin Xl (Bupropion Hcl) 150 Mg Tab.er.24h 150 Mg PO DAILY Remeron (Mirtazapine) 15 Mg Tablet 7.5 Mg PO QHS Acetaminophen 500 Mg Tablet 500 Mg PO PRN Q6HRS PRN Lisinopril-Hctz 10-12.5 Mg Tab (Lisinopril/Hydrochlorothiazide) 1 Each Tablet 1 Tab PO DAILY Gas-X (Simethicone) 62.5 Mg Strip 80 Mg PO PRN BID PRN Potassium Chloride 10 Meq Capsule.er 20 Meq PO DAILYWBKFT Synthroid (Levothyroxine Sodium) 50 Mcg Tablet 1 Tab PO DAILY Sinemet 25-100 Mg Tablet (Carbidopa/Levodopa) 1 Each Tablet 1 Tab PO TID Aspir-Low (Aspirin) 81 Mg Tablet.dr 81 Mg PO DAILY for heart health, blodo thinner prophlactic last dose: 09/02 AM next dose: 09/03 AM Atorvastatin Calcium 20 Mg Tablet 40 Mg PO QHS for high cholesterol last dose: 09/01 PM next dose: 09/02 PM Donepezil Hcl 10 Mg Tablet 20 Mg PO QHS for dementia last dose: 09/02 AM next dose: 09/03 AM Zoloft (Sertraline Hcl) 100 Mg Tablet 200 Mg PO DAILY for depression last dose: 09/02 AM next dose: 09/03 AM I have reviewed the current psychotropics carefully including drug interactions. Risk benefit ratio favors no change other than as noted in my dictated progress note. Diagnosis: Problems: (1) Obsessive compulsive disorder (2) Lewy body dementia with behavioral disturbance (3) Anxiety disorder ED OROZCO MD Nov 16, 2017 18:13
[2017-11-16] MEDS: MIRTAZAPINE 7.5 MG TABLET. PO SCH (20:10)
[2017-11-16] MEDS: ATORVASTATIN CALCIUM 20 MG TABLET PO SCH (20:11)
[2017-11-17] MEDS: LEVOTHYROXINE 50 MCG TABLET PO SCH (05:52)
[2017-11-17 06:22] VITALS: BP 158/104
[2017-11-17] MEDS: POLYETHYLENE GLYCOL 3350 17 GM PACKET. PO SCH (09:00)
[2017-11-17] MEDS: DOCUSATE SODIUM 100 MG CAPSULE PO SCH ×2 (09:00→20:37)
[2017-11-17] MEDS: LISINOPRIL 10 MG TABLET PO SCH (10:00)
[2017-11-17] MEDS: hydroCHLOROthiazide 12.5 MG CAPSULE PO SCH (10:01)
[2017-11-17] MEDS: CARBIDOPA/LEVODOPA 25/100MG TABLET PO SCH ×3 (10:01→20:37)
[2017-11-17] MEDS: buPROPion XL 150 MG TAB.ER.24H PO SCH (10:01)
[2017-11-17] MEDS: SERTRALINE 100 MG TABLET. PO SCH (10:01)
[2017-11-17] MEDS: ACETAMINOPHEN 500 MG TABLET PO PRN (10:01)
[2017-11-17] MEDS: DONEPEZIL HCL 10 MG TABLET PO SCH (10:01)
[2017-11-17] MEDS: MELOXICAM 7.5 MG TABLET PO SCH (10:02)
[2017-11-17] MEDS: POTASSIUM CHLORIDE 20 MEQ TABLET.ER. PO SCH (10:02)
[2017-11-17] MEDS: busPIRone 5 MG TABLET. PO SCH ×2 (10:02→15:05)
[2017-11-17] MEDS: ASPIRIN ENTERIC COATED 81 MG TABLET.DR. PO SCH (10:02)
[2017-11-17 18:03] VITALS: BP 143/83
[2017-11-17 20:12] VITALS: BP 137/79
[2017-11-17] MEDS: MIRTAZAPINE 7.5 MG TABLET. PO SCH (20:37)
[2017-11-17] MEDS: ATORVASTATIN CALCIUM 20 MG TABLET PO SCH (20:37)
[2017-11-18] MEDS: LEVOTHYROXINE 50 MCG TABLET PO SCH (06:18)
[2017-11-18 06:19] VITALS: BP 152/86
[2017-11-18] MEDS: buPROPion XL 150 MG TAB.ER.24H PO SCH (08:51)
[2017-11-18] MEDS: DONEPEZIL HCL 10 MG TABLET PO SCH (08:51)
[2017-11-18] MEDS: CARBIDOPA/LEVODOPA 25/100MG TABLET PO SCH ×3 (08:51→20:40)
[2017-11-18] MEDS: ACETAMINOPHEN 500 MG TABLET PO PRN (08:52)
[2017-11-18] MEDS: SERTRALINE 100 MG TABLET. PO SCH (08:52)
[2017-11-18] MEDS: hydroCHLOROthiazide 12.5 MG CAPSULE PO SCH (08:52)
[2017-11-18] MEDS: ASPIRIN ENTERIC COATED 81 MG TABLET.DR. PO SCH (08:52)
[2017-11-18] MEDS: LISINOPRIL 10 MG TABLET PO SCH (08:53)
[2017-11-18] MEDS: MELOXICAM 7.5 MG TABLET PO SCH (08:53)
[2017-11-18] MEDS: POTASSIUM CHLORIDE 20 MEQ TABLET.ER. PO SCH (08:53)
[2017-11-18] MEDS: busPIRone 5 MG TABLET. PO SCH ×2 (08:53→14:09)
[2017-11-18] MEDS: DOCUSATE SODIUM 100 MG CAPSULE PO SCH ×2 (09:00→20:40)
[2017-11-18] MEDS: POLYETHYLENE GLYCOL 3350 17 GM PACKET. PO SCH (09:00)
--- NOTE | 2017-11-18 10:08 | PN ---
DATE: 11/16/2017 PSYCHIATRIC PROGRESS NOTE This is a late entry 11/16/2017, covers elements not covered in my initial note 11/16/2017. SUBJECTIVE: I met with the patient the evening of 11/16/2017. Per nursing report, the patient is doing reasonably well. He does come out for activities. He is appearing stronger and subjectively states he is less anxious and obsessive. We discussed changes in his psychotropics once again. He is understanding of it and stated "I already feel better." Some of this may well be his perception since the BuSpar was just recently added. It has had little time to be overtly affective. REVIEW OF SYSTEMS: Ambulation impaired. No CV, , pulmonary, eye system symptoms on review. MENTAL STATUS EXAM: Oriented to himself and situation. Speech is coherent, has some latency, low in volume. Abstraction fair, computation somewhat impaired, language function intact. Mood and affect showing improvement. LABORATORY DATA: Reviewed. IMPRESSION: Major depressive disorder; anxiety disorder, unspecified; OCD, major neurocognitive disorder, early. Rest unchanged from initial note. PLAN: No change from a psychiatric standpoint, continue psychotropics mentioned in my initial note. MAN Isidro OROZCO MD DR: KASIA/benedicto JOB#: [id number] / [id number]
[2017-11-18 20:17] VITALS: BP 159/92
[2017-11-18] MEDS: ATORVASTATIN CALCIUM 20 MG TABLET PO SCH (20:40)
[2017-11-18] MEDS: MIRTAZAPINE 7.5 MG TABLET. PO SCH (20:40)
[2017-11-19] MEDS: LEVOTHYROXINE 50 MCG TABLET PO SCH (05:54)
[2017-11-19 06:02] VITALS: BP 138/71
[2017-11-19 06:05] VITALS: BP 168/84
[2017-11-19] MEDS: POLYETHYLENE GLYCOL 3350 17 GM PACKET. PO SCH (08:38)
[2017-11-19] MEDS: MELOXICAM 7.5 MG TABLET PO SCH (08:41)
[2017-11-19] MEDS: hydroCHLOROthiazide 12.5 MG CAPSULE PO SCH (08:41)
[2017-11-19] MEDS: ASPIRIN ENTERIC COATED 81 MG TABLET.DR. PO SCH (08:41)
[2017-11-19] MEDS: buPROPion XL 150 MG TAB.ER.24H PO SCH (08:41)
[2017-11-19] MEDS: DOCUSATE SODIUM 100 MG CAPSULE PO SCH ×2 (08:41→20:04)
[2017-11-19] MEDS: busPIRone 5 MG TABLET. PO SCH ×2 (08:41→14:25)
[2017-11-19] MEDS: POTASSIUM CHLORIDE 20 MEQ TABLET.ER. PO SCH (08:41)
[2017-11-19] MEDS: SERTRALINE 100 MG TABLET. PO SCH (08:41)
[2017-11-19] MEDS: LISINOPRIL 10 MG TABLET PO SCH (08:41)
[2017-11-19] MEDS: DONEPEZIL HCL 10 MG TABLET PO SCH (08:42)
[2017-11-19] MEDS: CARBIDOPA/LEVODOPA 25/100MG TABLET PO SCH ×3 (08:42→20:05)
--- NOTE | 2017-11-19 11:38 | PN ---
DATE: 11/18/2017 GROUP HOME NOTE DATE OF VISIT: 11/18/2017 CURRENT PROBLEMS: 1. Status post fall. 2. General debility. 3. Dementia. 4. Parkinson. 5. Hypothyroidism. 6. Depression. SUBJECTIVE: This is a 77-year-old gentleman, who was admitted to swing bed status after a fall and has been undergoing rehab since 11/02/2017. He has been doing very well and possibly can be discharged on Sunday. He was seen in his room. He was looking on his iPad at the weather and had no specific complaints. OBJECTIVE: VITAL SIGNS: Blood pressure 152/86, pulse 64, respirations 20, pulse ox 96% on room air, temperature 97.5. GENERAL: A 77-year-old, in no acute distress. He is alert, appropriate, answering questions appropriately. HEENT: Tongue was moist. LUNGS: Clear. CARDIOVASCULAR: Regular rhythm and rate. EXTREMITIES: Without edema. LABORATORY DATA: Labs from the were reviewed and were unremarkable. PLAN: Continue to work toward discharge and is doing well. NICK DONAHUE DO DR: CRISTOPHER/benedicto JOB#: [id number] / [id number]
[2017-11-19] MEDS ORDERED: BUSP5TAB PO (13:02)
[2017-11-19] MEDS: ATORVASTATIN CALCIUM 20 MG TABLET PO SCH (20:05)
[2017-11-19] MEDS: MIRTAZAPINE 7.5 MG TABLET. PO SCH (20:05)
[2017-11-19 20:07] VITALS: BP 126/77
--- NOTE | 2017-11-19 20:49 | DS ---
DATE OF DISCHARGE: 11/20/2017 DISPOSITION: Home health to assisted living. DISCHARGE DIAGNOSES: 1. Status post fall. 2. Debilitation. 3. Parkinson's disease. 4. Hypothyroidism. 5. Depression. 6. Anxiety. 7. Obsessive-compulsive disorder. 8. Major neurocognitive disorder. 9. Hypertension: PENITENTIARY COURSE: A 77-year-old gentleman who was admitted to swing bed after a fall for PT and OT. He tolerated this well and had no issues during his stay on nursing home. He was seen yesterday 11/18/2017 and physical done yesterday. DISPOSITION: Back to assisted living with home health. Medications have been reconciled. Note his blood pressure is slightly elevated, but also has completely normal blood pressures in between. NICK DONAHUE DO DR: CRISTOPHER/benedicto JOB#: [id number] / [id number] STAN Mendoza MD
[2017-11-20 06:00] VITALS: BP 159/87
[2017-11-20] MEDS: LEVOTHYROXINE 50 MCG TABLET PO SCH (06:08)
[2017-11-20] MEDS: ASPIRIN ENTERIC COATED 81 MG TABLET.DR. PO SCH (09:22)
[2017-11-20] MEDS: DONEPEZIL HCL 10 MG TABLET PO SCH (09:22)
[2017-11-20] MEDS: POTASSIUM CHLORIDE 20 MEQ TABLET.ER. PO SCH (09:22)
[2017-11-20] MEDS: hydroCHLOROthiazide 12.5 MG CAPSULE PO SCH (09:23)
[2017-11-20] MEDS: DOCUSATE SODIUM 100 MG CAPSULE PO SCH (09:23)
[2017-11-20] MEDS: busPIRone 5 MG TABLET. PO SCH (09:23)
[2017-11-20 09:24] VITALS: BP 159/87
[2017-11-20] MEDS: MELOXICAM 7.5 MG TABLET PO SCH (09:24)
[2017-11-20] MEDS: buPROPion XL 150 MG TAB.ER.24H PO SCH (09:24)
[2017-11-20] MEDS: LISINOPRIL 10 MG TABLET PO SCH (09:24)
[2017-11-20] MEDS: SERTRALINE 100 MG TABLET. PO SCH (09:24)
[2017-11-20] MEDS: CARBIDOPA/LEVODOPA 25/100MG TABLET PO SCH (09:24)
[2017-11-20] MEDS: POLYETHYLENE GLYCOL 3350 17 GM PACKET. PO SCH (09:28)
--- NOTE | 2017-11-20 09:56 | PN ---
DATE: 11/15/2017 This late entry 11/15/2017 covers elements not covered in my initial note 11/15/2017. SUBJECTIVE: I met with the patient evening of 11/15/2017. Overall, per nursing report, the patient has been coming out for activities and meals, little more interactive. He does have short-term memory deficits, but reasonably oriented. He clearly remembered who I was when I met him the evening of 11/15/2017. No active hallucinations noted. Ambulation impaired. REVIEW OF SYSTEMS: No CV, , pulmonary, eye system symptoms on review, still somewhat weak, but states he feels stronger. MENTAL STATUS EXAM: Oriented to himself, situation. 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 Abstraction fair, computation somewhat impaired, language function intact. Mood and affect showing improvement. IMPRESSION: Obsessive-compulsive disorder, early major neurocognitive disorder, Lewy body with depression. Rest unchanged. PLAN: No change from a psychiatric standpoint as noted in my initial note. MAN Isidro OROZCO MD DR: KASIA/benedicto JOB#: [id number] / [id number]
== END 2017-11-20 09:43 | disposition home or self-care (01) | DRG 57 ==
LOC: 1 SOUTH 15:54 → LND 11-05 05:55 → 1 SOUTH 11-17 15:27
PROVIDERS: ADMIT Family Medicine; ATTEND Family Medicine
DX: G31.83 Neurocognitive disorder with Lewy bodies (principal); F01.51 Vascular dementia, unspecified severity, with behavioral disturbance; G30.9 Alzheimer's disease, unspecified; F02.81 Dementia in other diseases classified elsewhere, unspecified severity, with behavioral disturbance; W18.39XA Other fall on same level, initial encounter; E03.9 Hypothyroidism, unspecified; F32.9 Major depressive disorder, single episode, unspecified; F22 Delusional disorders; F41.9 Anxiety disorder, unspecified; F42.9 Obsessive-compulsive disorder, unspecified; F63.9 Impulse disorder, unspecified; G47.30 Sleep apnea, unspecified; I10 Essential (primary) hypertension; Z66 Do not resuscitate; Z85.46 Personal history of malignant neoplasm of prostate; Y93.89 Activity, other specified; Y92.89 Other specified places as the place of occurrence of the external cause; Y99.8 Other external cause status
CPT/HCPCS: 36415; 80048; 85027; 97110; 97112; 97116; 97530; 97535